=== PATIENT | female | born 1950 | race Caucasian/White ===

== ENCOUNTER 2017-12-17 10:15 | Emergency (ER) ==
[2017-12-17 10:21] VITALS: BP 148/93; TEMP 98.5; BMI 27.4
--- NOTE | 2017-12-17 10:28 | ED.PDOC ---
General ED Provider: Dr. VIKI VAZQUEZ Chief Complaint: Shoulder Pain/Injury Stated Complaint: Lt Shoulder pain. States rolled out of bed. Offered analgesics-refused. Time Seen by Physician: 10:24 Mode of Arrival: Walk-In Information Source: Patient Exam Limitations: No limitations Nursing and Triage Documentation Reviewed and Agree: Yes Does patient meet sepsis criteria?: No System Inflammatory Response Syndrome: Not Applicable Sepsis Protocol: For patient's 13 years and over: Temp is 96.8 and below OR 101 and greater Pulse >90 BPM Resp >20/minute Acutely Altered Mental Status Are patient's symptoms suggestive of a new infection, such as: -Pneumonia -Skin, Soft Tissue -Endocarditis -UTI -Bone, Joint Infection -Implantable Device -Acute Abdominal Infection -Wound Infection -Meningitis -Blood Stream Catheter Infection -Unknown Musculoskeletal Complaint Exam - Shoulder Pain Complaint/Exam Mechanism of Injury: Reports: Trauma Symptoms Are: Still present Timing: Constant Initial Severity: Severe Current Severity: Moderate Location: Reports: Diffuse Character: Reports: Sharp Alleviating: Reports: Rest Aggravating: Reports: Movement, Lifting, Flexion, Extension, Internal rotation, External rotation, Abduction Associated Signs and Symptoms: Reports: Swelling, Bruising Related History: Denies: Similar episode DVT Risk Factors: Reports: None Septic Arthritis Risk Factors: Reports: None Related Surgical History: Reports: None Shoulder Findings: Present: Swelling, Ecchymosis Tenderness: Present: Clavicle, AC joint Limited Range of Motion: Present: Abduction, Flexion, Extension, Internal rotation, External rotation Differential Diagnoses: Closed Fracture Review of Systems - Review Of Systems Constitutional: Reports: No symptoms Eyes: Reports: No symptoms Ears, Nose, Mouth, Throat: Reports: No symptoms Respiratory: Reports: No symptoms Cardiac: Reports: No symptoms GI: Reports: No symptoms : Reports: No symptoms Musculoskeletal: Reports: No symptoms Skin: Reports: No symptoms Neurological: Reports: No symptoms Endocrine: Reports: No symptoms Hematologic/Lymphatic: Reports: No symptoms All Other Systems: Reviewed and Negative Past Medical History - Past Medical History Previously Healthy: Yes Endocrine: Reports: Dyslipidemia Cardiovascular: Reports: None Respiratory: Reports: None Hematological: Reports: None Gastrointestinal: Reports: GERD Genitourinary: Reports: None Neuro/Psych: Reports: Anxiety Musculoskeletal: Reports: Arthritis, Joint Pain Cancer: Reports: None Last Menstrual Period: n/a - Surgical History General Surgical History: Reports: Unknown - Family History Family History: Reports: Unknown - Social History Smoking Status: Former smoker Hx Substance Use: No Alcohol Screening: None Physical Exam - Physical Exam Appearance: Well-appearing, No pain distress, Well-nourished Pain Distress: Mild Eyes: CHERYL, EOMI, Conjunctiva clear ENT: Ears normal, Nose normal, Oropharynx normal Neck: Supple Respiratory: Airway patent, Breath sounds clear, Breath sounds equal, Respirations nonlabored Cardiovascular: RRR, Pulses normal, No rub, No murmur GI/: Soft, Nontender, No masses, Bowel sounds normal, No Organomegaly Musculoskeletal: Normal strength, No edema, No calf tenderness, Limited ROM (Lt shoulder with pain to palpation at distal Lt clavicle at AC joint) Skin: Warm, Dry, Normal color Neurological: Sensation intact, Motor intact, Reflexes intact, Cranial nerves intact, Alert, Oriented Psychiatric: Affect appropriate, Mood appropriate Interpretation - Radiology Interpretation Exam Interpreted: CT Scan (Distal Lt Clavicle fracture) Critical Care Note - Critical Care Note Total Time (mins): 0 Course - Course Orders, Labs, Meds: Orders Category Date Time Status CT SHOULDER LEFT W/O CONTRAST Stat RADS 12/17/17 10:31 Completed Vital Signs: Temp Pulse Resp BP Pulse Ox 12/17/17 10:15 98.5 F 73 16 148/93 H 95 Departure - Departure Time of Disposition: 11:25 Disposition: HOME SELF-CARE Discharge Problem: Displaced fracture of acromial end of left clavicle, Osteoarthritis of left shoulder Instructions: Clavicle Fracture (ED) Condition: Good Pt referred to PMD for follow-up: Yes (Follow up PCP and with Dr Saba - orthopedic surgeon) IPMP verified?: No Additional Instructions: Wear clavicle splint Take analgesics for pain as needed. Apply ice to the area of discomfort 4 times daily Return to ER if condition worsens Allergies/Adverse Reactions: Allergies No Known Allergies Allergy (Unverified 12/17/17 10:20) Home Medications: Ambulatory Orders Epinephrine [Epipen] 0.3 mg IJ PRN PRN 12/17/17 Escitalopram Oxalate [Lexapro] 10 mg PO DAILY 12/17/17 Metoprolol Succinate 100 mg PO DAILY 12/17/17 Omeprazole [Prilosec] 20 mg PO QDAC 12/17/17 Rosuvastatin Calcium [Crestor] 10 mg PO BEDTIME 08/13/18 Disposition Discussed With: Patient, Family (Stated has meds to take at home)
--- NOTE | 2017-12-17 11:10 | CT ---
EXAM: CT of the left shoulder without contrast History: Left shoulder trauma. Technique: Multiplanar CT images through the left shoulder were obtained without the administration of IV contrast Findings: The visualized lungs are free of consolidation. Coronary calcifications. Partially visua lized. Moderate to large hiatal hernia. There is a mildly displaced fracture of the distal left cla vicle. No dislocation. Moderate narrowing of the left AC joint and left glenohumeral joint with ost eophyte formation. There are intra-articular loose bodies within the glenohumeral joint. Sclerosis and cystic change involving the superior lateral aspect of the humeral head. There is soft tissue sw elling at the fracture site. Impression: 1. Acute mildly displaced fracture of the distal left clavicle. 2. Moderate osteoarthritis of the left AC joint and left glenohumeral joint. 3. Intra-articular loose bodies of the left glenohumeral joint. 4. Probable rotator cuff disease. 5. Coronary artery disease. 6. Hiatal hernia
== END 2017-12-17 11:40 | disposition home or self-care (01) ==
LOC: ED 10:15
DX: S42.032A Displaced fracture of lateral end of left clavicle, initial encounter for closed fracture (principal); W06.XXXA Fall from bed, initial encounter; M19.012 Primary osteoarthritis, left shoulder
CPT/HCPCS: 99282